=== PATIENT | female | born 1940 | race Caucasian/White ===

== ENCOUNTER 2019-01-13 19:35 | Emergency (ER) | payer OTHER ==
[2019-01-13 19:52] VITALS: BP 153/60; PULSE 95; TEMP 98.2; BMI 29.5
[2019-01-13 20:12] LABS: HEMOGLOBIN 13.1 GM/dl (10.7-15.3); MCH 34.5 pg (25.7-33.7); MCHC 33.7 g/dl (32.0-36.0); MEAN CELL VOLUME 102.4 fl (80-96); MEAN PLT VOLUME 8.3 fl (7.5-11.1); PLATELET COUNT 226 K/MM3 (134-434); RBC 3.81 M/mm3 (3.60-5.2); RDW 13.1 % (11.6-15.6); WHITE BLOOD COUNT 16.6 K/mm3 (4.0-10.8)
[2019-01-13 20:25] LABS: ALBUMIN 3.8 g/dl (3.4-5.0); BILIRUBIN,TOTAL 0.4 mg/dl (0.2-1); CREATININE 0.9 mg/dl (0.55-1.3); POTASSIUM 4.6 mmol/L (3.5-5.1); TOT PROT 7.1 g/dl (6.4-8.2)
[2019-01-13 20:57] LABS: PLATELET ESTIMATE ADEQUATE
--- NOTE | 2019-01-13 22:34 | PDOC ---
Documentation entered by Radha Rosenberg SCRIBE, acting as scribe for Dilia Sanchez MD. Dilia Sanchez MD: This documentation has been prepared by the Chet reed Brenda, SCRIBE, under my direction and personally reviewed by me in its entirety. I confirm that the documentation accurately reflects all work , treatment, procedures, and medical decision making performed by me. History of Present Illness - General Chief Complaint: Chest Pain Stated Complaint: CHEST PRESSURE History Source: Patient Exam Limitations: No Limitations - History of Present Illness Initial Comments: 01/13/19 20:10 The patient is a 78 year old female, with a significant PMH of hypothyroidism who presents to the emergency department from urgent care with chest pressure. As per patient, she was home playing a board game with her family, this afternoon, at which time she began to feel the chest pressure. She states going to urgent care and being sent to the ED due to an abnormal EKG. Patient states that the pressure is exacerbated when taking a deep breath. She also reports having a stress test done in September 2018, which was fine. The patient denies pain upon movement. Denies any similar episodes previously. Denies, shortness of breath, headache and dizziness. Denies any aggravating physical exertion. Denies fever, chills, nausea, vomiting, diarrhea and constipation. Denies any urinary symptoms. Allergies: NKA Past surgical history: Midline scoliosis surgery scar Social history: Denies any tobacco use, alcohol use, or illicit drug use. PCP: At [facility] ROS: General: No fevers or chills, no weakness, no weight loss HEENT: No change in vision. No sore throat,. No ear pain CardioVascular: (+) Chest pressure. No shortness of breath Respiratory:No cough, or wheezing. Gastrointestinal: no nausea, vomiting, diarrhea or constipation, No rectal bleeding Genitourinary: No dysuria, hematuria, or frequency Musculoskeletal: No joint or muscle pain or swelling Neurologic: No headache, vertigo, dizziness or loss of consciousness Psychiatric: nor depression Skin: No rashes or easy bruising Endocrine: no increased thirst or abnormal weight change Allergic: no skin or latex allergy All other systems reviewed and normal PE: General: Well-nourished well-developed individual, no acute distress HEENT: Throat: Normal, tonsils normal, no erythema or exudate Neck: Supple, no meningeal signs, no lymphadenopathy Eyes::Pupils equal reactive and round, extraocular motion intact Chest: Nontender to palpation Cardiac: (+) 2/6 systolic murmur.(+) Pain is reproducible upon palpation to anterior chest. S1-S2 normal, regular rate and rhythm, no gallops Respiratory: Lungs clear to auscultation bilateral Abdomen: Soft, nondistended, normal bowel sounds, nontender to palpation diffusely Extremities: Warm, dry, no cyanosis, clubbing, or edema Skin: No rashes Neuro: Alert and oriented x3, nonfocal exam, grossly intact, normal gait Psych: Normal mood and affect 01/13/19 22:34 Assessment and plan: This is a 78-year-old female who comes in complaining of pleuritic type chest pain. Patient had gone to an urgent care center and had an abnormal cardiogram. Patient said that her cardiogram has been abnormal for quite some time with a right bundle branch block. Patient had a work-up including CBC, comp, BNP, EKG, chest x-ray. Patient's work-up was unremarkable for any acute pathology. Patient will see her beveler in the morning. Patient given copies of her work-up and discharged. Past History - Past Medical History Allergies/Adverse Reactions: Allergies Allergy/AdvReac Type Severity Reaction Status Date / Time Sulfa (Sulfonamide Allergy Verified 01/13/19 19:37 Antibiotics) Home Medications: Ambulatory Orders Carbamazepine 600 mg PO DAILY 01/13/19 Duloxetine HCl 90 mg PO DAILY 01/13/19 Levothyroxine Sodium 137 mcg PO DAILY 01/13/19 Multivitamins [Tab-A-Vit -] 1 tab PO DAILY 01/13/19 *Physical Exam - Vital Signs Last Vital Signs Temp Pulse Resp BP Pulse Ox 98.2 F 95 H 16 153/60 96 01/13/19 19:49 01/13/19 19:49 01/13/19 19:49 01/13/19 19:49 01/13/19 19:49 Heart Score/ECG Review - History History: Slightly suspicious - Electrocardiogram EKG: Non specific repolarization disturbance - Age Age: >/= 65 - Risk Factors Based on the list above the patient has:: No risk factors known - Troponin Troponin: </= normal limit - Score Heart Score - Total: 3 ED Treatment Course - LABORATORY CBC & Chemistry Diagram: 01/13/19 20:00 01/13/19 20:00 - RADIOLOGY Radiology Studies Ordered: Category Date Time Status CHEST X-RAY PORTABLE* [RAD] Stat Radiology 01/13/19 19:53 Ordered Discharge - Discharge Information Problems reviewed: Yes Clinical Impression/Diagnosis: Chest pain, pleuritic Condition: Stable Disposition: HOME - Admission No - Follow up/Referral Referrals: ON STAFF,NOT [Primary Care Provider] - - Patient Discharge Instructions Additional Instructions: Take Tylenol or Motrin as needed for pain. Return to the emergency department immediately with ANY new, persistent or worsening symptoms. Continue any medications as previously prescribed by your physician. You should follow up with your primary doctor as soon as possible regarding today's emergency department visit. . Please make sure your doctor reviews the results of your emergency evaluation. Thank you for coming to the Emergency Department today for your care. It was a pleasure to see you today. Please note that your evaluation is INCOMPLETE until you follow-up with your doctor. - Post Discharge Activity
--- NOTE | 2019-01-14 13:17 | EKG ---
Test Reason : Blood Pressure : / mmHG Vent. Rate : 097 BPM Atrial Rate : 097 BPM P-R Int : 176 ms QRS Dur : 120 ms QT Int : 374 ms P-R-T Axes : 061 082 023 degrees QTc Int : 474 ms NORMAL SINUS RHYTHM POSSIBLE LEFT ATRIAL ENLARGEMENT RIGHT BUNDLE BRANCH BLOCK ABNORMAL ECG NO PREVIOUS ECGS AVAILABLE Confirmed by IRMA GARZA MD ([id number]) on 01/14/2019 1:17:01 PM Referred By: DR JIMENEZ Confirmed By:IRMA GARZA MD
== END 2019-01-13 22:39 | disposition home or self-care (01) ==
LOC: FER 19:35
DX: R07.81 Pleurodynia (principal); E03.9 Hypothyroidism, unspecified; Z88.2 Allergy status to sulfonamides
CPT/HCPCS: 36415; 71045-TC-FY; 80053; 81003; 82550; 83880; 84484; 85025; 93005; 99282-25